=== PATIENT | female | born 1975 | race Caucasian/White ===

== ENCOUNTER → 2017-08-05 | Outpatient (CLI) | payer BC, OTHER ==
[~2017-08-05] MED LIST: MULT-506 PO
== END | disposition home or self-care (01) ==
LOC: C.LABSPEC 10:32
PROVIDERS: ATTEND Internal Medicine
DX: R39.9 Unspecified symptoms and signs involving the genitourinary system (principal)

== ENCOUNTER 2021-12-02 11:39 | Inpatient (IN) ==
--- NOTE | 2021-12-02 12:34 | Emergency Department Note ---
Impression & Plan Acute hyponatremia, Bilateral edema of lower extremity, Cachexia, Elevated LFTs, Hypomagnesemia ED Provider Note INFORMANT: Patient ED PROVIDER(S): Kenyon Moss MD CHIEF COMPLAINT: Lower extremity edema PLAN: Disposition: Admitted Condition: Good Outpatient prescription management: none Referral: None MEDICAL DECISION MAKING: Patient presents because of lower extremity edema. She had cachexia on physical examination. She had significant lower extremity edema. Bilateral ultrasound imaging did not reveal any evidence of DVT. Patient has a leukopenia and anemia, mild elevation of TSH, elevated LFTs, low magnesium, and was hyponatremic. She had IV magnesium given. I discussed further management in the hospital to further elucidate the causes of her lab abnormalities and lower extremity edema. Patient was in agreement. [facility] Patient was evaluated in the ER and admitted for further management. Triage Nursing notes reviewed and agree them. Vital Signs: reviewed and remarkable for no significant abnormalities Differential diagnosis: Hepatic dysfunction, DVT, musculoskeletal, infection, joint effusion, trauma, lymphedema, idiopathic, CHF, as well as other pathologies. Diagnostics interpreted by me: ECG: Twelve-lead ECG was normal sinus rhythm at 64 bpm. Right axis deviation. There is a septal Q wave present. Low voltage QRS. Cardiac Monitoring:Cardiac monitoring ordered by me: The patient was placed on continuous cardiac monitoring and observed. It revealed a normal sinus rhythm at 64 beats per minute without ectopy or evidence of dysrhythmia. Imaging studies: Chest x-ray negative Ultrasound imaging of the lower extremities negative for DVT. HPI: The patient is a 46 year old female who presents to the Emergency Room with complaints of lower extremity edema. This started about a year ago and is much worse over the recent weeks. She was seen by her primary physician and was directed to the emergency department yesterday however the patient could not miss work. They noted her blood pressure was low. Patient also notes weight loss. The patient also notes the following associated symptoms, weakness, weeping of her her legs. The patient has found no relieving factors. Current pain is rated as 0/10. Pt denies LOC, headache, fevers, chills, diaphoresis, visual changes, neck pain, chest pain, breathing difficulties, nausea, vomiting, abdominal pain, back pain, melena, hematochezia, urinary symptoms, numbness, lymphadenopathy, rash, or other complaints. ROS: See above HPI for pertinent positives & negatives. A total of 10 systems reviewed and were otherwise negative. PAST MEDICAL HISTORY:See Below , patient denies PAST SURGICAL HISTORY:See Below, FAMILY HISTORY:See Below SOCIAL HISTORY:See Below, employed as a business banker HOME MEDICATIONS:See Below ALLERGIES:See Below VITALS:See Below PHYSICAL EXAMINATION: GENERAL: Awake, alert, cachectic-appearing, in no distress HENT: Normocephalic, atraumatic. Oropharynx unremarkable. EYES: Normal conjunctiva. Sclera non-icteric. NECK: Inspection normal. Non-tender. Supple. No nuchal rigidity. FROM. No masses. RESPIRATORY: Clear to auscultation. No wheezes. No rales. Normal respiratory effort. CARDIAC: Normal rate. Normal rhythm. No murmurs. No rubs. Extremities warm and well perfused. Pulses equal. No JVD. GI: Soft, non-distended. No tenderness to palpation. No rebound or guarding. No masses. RECTAL: Deferred. MUSCULOSKELETAL: Generalized muscular atrophy. Atraumatic. Chest examination reveals no tenderness. The back is symmetrical on inspection without obvious abnormality. There is no CVA tenderness to palpation. No joint edema. LOWER EXTREMITIES: Calves are equal size bilaterally and non-tender. 4+ edema. Mild bruising discoloration of the right patellar area and some ulceration in weeping noted of the posterior inferior right lower extremity. Discoloration. NEURO: Normal sensorium. No sensory or motor deficits noted. SKIN: No rash or jaundice noted. Kenyon Moss MD Past Med/Surg History Social History Smoking Status: Never smoker Feels Safe at Home: Yes Allergies Allergies Allergy/AdvReac Type Severity Reaction Status Date / Time latex Allergy Rash Verified 12/02/21 13:29 Home Meds Home Medications Medication Instructions Recorded Confirmed levothyroxine 25 mcg tablet 25 mcg PO DAILY 12/02/21 12/02/21 multivitamin 1 tab PO DAILY 12/02/21 12/02/21 mupirocin 2 % topical ointment 1 applic TOPICAL TID PRN 12/02/21 12/02/21 Results & Data (ED) Vital Signs Vital Signs - 24 hr 12/02/21 11:41 12/02/21 11:47 12/02/21 12:20 Temperature 36.0 C L Temperature Source Temporal Artery Scan Pulse Rate 67 66 Pulse Rate [Left] Pulse Rhythm [Left] Pulse Strength [Left] Respiratory Rate 15 18 Respiratory Effort / Characteristics Non-Labored Spontaneous Respiratory Depth Normal Respiratory Pattern Blood Pressure 95/62 L Blood Pressure [Right Arm] Blood Pressure Mean 73 Blood Pressure Mean [Right Arm] Blood Pressure Position Sitting Blood Pressure Position [Right Arm] Pulse Oximetry 100 98 98 Oxygen Delivery Method Room Air Room Air Room Air Sepsis Recent Fever Within 48 Hours No Sepsis New/Unexplained Change in Mental Status No Sepsis Action Taken by Nursing No Action Required 12/02/21 12:30 12/02/21 12:45 12/02/21 13:30 Temperature Temperature Source Pulse Rate 71 100 H 73 Pulse Rate [Left] Pulse Rhythm [Left] Pulse Strength [Left] Respiratory Rate 21 24 15 Respiratory Effort / Characteristics Respiratory Depth Respiratory Pattern Blood Pressure Blood Pressure [Right Arm] Blood Pressure Mean Blood Pressure Mean [Right Arm] Blood Pressure Position Blood Pressure Position [Right Arm] Pulse Oximetry 99 97 98 Oxygen Delivery Method Room Air Room Air Room Air Sepsis Recent Fever Within 48 Hours Sepsis New/Unexplained Change in Mental Status Sepsis Action Taken by Nursing 12/02/21 14:21 Temperature Temperature Source Pulse Rate Pulse Rate [Left] 64 Pulse Rhythm [Left] Regular Pulse Strength [Left] Normal Respiratory Rate 18 Respiratory Effort / Characteristics Non-Labored Respiratory Depth Normal Respiratory Pattern Regular Blood Pressure Blood Pressure [Right Arm] 103/66 Blood Pressure Mean Blood Pressure Mean [Right Arm] 78 Blood Pressure Position Blood Pressure Position [Right Arm] Lying Pulse Oximetry 98 Oxygen Delivery Method Room Air Sepsis Recent Fever Within 48 Hours Sepsis New/Unexplained Change in Mental Status Sepsis Action Taken by Nursing Laboratory Data Result diagrams: 12/02/21 12:19 12/02/21 12:19 Lab Results 12/02/21 12/02/21 12/02/21 Range/Units 12:19 12:19 12:19 WBC 2.91 L (4.8-10.8) K/uL RBC 2.96 L (4.2-5.4) M/uL Hgb 10.9 L (12.0-16.0) g/dL Hct 29.5 L (37-47) % MCV 99.7 (80-100) fL MCH 36.8 H (25-34) pg MCHC 36.9 H (32-36) g/dL RDW Std Deviation 44.9 (36.4-46.3) fL RDW Coeff of Sandy 12.4 (11.5-14.5) % Plt Count 161 (130-400) K/uL MPV 9.7 (7.4-10.4) fL Immature Gran % (Auto) 0.0 % Neut % (Auto) 84.6 % Lymph % (Auto) 8.2 % Verm[place] % (Auto) 7.2 % Eos % (Auto) 0.0 % Baso % (Auto) 0.0 % Neut # (Auto) 2.46 (1.4-6.5) K/uL Lymph # (Auto) 0.24 L (1.2-3.4) K/uL [place] # (Auto) 0.21 (0.11-0.59) K/uL Eos # (Auto) 0.00 (0-0.5) K/uL Baso # (Auto) 0.00 (0-0.2) K/uL Immature Gran # (Auto) 0.00 (0.00-0.02) K/uL PT 11.2 (9.0-12.0) Seconds INR 1.1 (0.9-1.1) Sodium 121 L (136-145) mmol/L Potassium 4.3 (3.5-5.1) mmol/L Chloride 93 L (98-107) mmol/L Carbon Dioxide 25 (21-32) mmol/L Anion Gap 3 (3-11) BUN 17 (6-23) mg/dl Creatinine 0.29 L (0.6-1.2) mg/dl Est Cr Clr Drug Dosing 132.9 ml/min Est GFR ( Amer) > 150.0 ml/min Est GFR (Non-Af Amer) 140.8 ml/min BUN/Creatinine Ratio 58.6 H (10-20) Glucose 75 (70-99(Fasting)) mg/dl Calcium 8.3 L (8.5-10.1) mg/dl Magnesium 1.5 L (1.7-2.4) mg/dl Total Bilirubin 0.4 (0.2-1.0) mg/dl AST 101 H (13-39) U/L ALT 114 H (7-52) U/L Alkaline Phosphatase 120 H (34-104) U/L Troponin I High Sens 7.7 (0-14) pg/ml B-Natriuretic Peptide (0-100) pg/ml Total Protein 5.0 L (6.0-8.3) gm/dl Albumin 3.0 L (3.4-5.0) gm/dl Globulin 2.0 L (2.5-4.0) gm/dl Albumin/Globulin Ratio 1.5 (0.9-2) TSH (0.300-4.500) uIu/ml Free T4 (0.61-1.60) ng/dl HCG, Qual (Negative) Urine Color Urine Appearance (Clear) Urine pH (4.5-7.5) Ur Specific [place] (1.000-1.030) Urine Protein (Negative) Urine Glucose (UA) (Negative) Urine Ketones (Negative) Urine Blood (Negative) Urine Nitrite (Negative) Urine Bilirubin (Negative) Urine Urobilinogen (Negative) Ur Leukocyte Esterase (Negative) 12/02/21 12/02/21 12/02/21 Range/Units 12:19 12:19 12:19 WBC (4.8-10.8) K/uL RBC (4.2-5.4) M/uL Hgb (12.0-16.0) g/dL Hct (37-47) % MCV (80-100) fL MCH (25-34) pg MCHC (32-36) g/dL RDW Std Deviation (36.4-46.3) fL RDW Coeff of Sandy (11.5-14.5) % Plt Count (130-400) K/uL MPV (7.4-10.4) fL Immature Gran % (Auto) % Neut % (Auto) % Lymph % (Auto) % [place] % (Auto) % Eos % (Auto) % Baso % (Auto) % Neut # (Auto) (1.4-6.5) K/uL Lymph # (Auto) (1.2-3.4) K/uL [place] # (Auto) (0.11-0.59) K/uL Eos # (Auto) (0-0.5) K/uL Baso # (Auto) (0-0.2) K/uL Immature Gran # (Auto) (0.00-0.02) K/uL PT (9.0-12.0) Seconds INR (0.9-1.1) Sodium (136-145) mmol/L Potassium (3.5-5.1) mmol/L Chloride (98-107) mmol/L Carbon Dioxide (21-32) mmol/L Anion Gap (3-11) BUN (6-23) mg/dl Creatinine (0.6-1.2) mg/dl Est Cr Clr Drug Dosing ml/min Est GFR ( Amer) ml/min Est GFR (Non-Af Amer) ml/min BUN/Creatinine Ratio (10-20) Glucose (70-99(Fasting)) mg/dl Calcium (8.5-10.1) mg/dl Magnesium (1.7-2.4) mg/dl Total Bilirubin (0.2-1.0) mg/dl AST (13-39) U/L ALT (7-52) U/L Alkaline Phosphatase (34-104) U/L Troponin I High Sens (0-14) pg/ml B-Natriuretic Peptide 96 (0-100) pg/ml Total Protein (6.0-8.3) gm/dl Albumin (3.4-5.0) gm/dl Globulin (2.5-4.0) gm/dl Albumin/Globulin Ratio (0.9-2) TSH 7.607 H (0.300-4.500) uIu/ml Free T4 1.41 (0.61-1.60) ng/dl HCG, Qual Negative (Negative) Urine Color Urine Appearance (Clear) Urine pH (4.5-7.5) Ur Specific [place] (1.000-1.030) Urine Protein (Negative) Urine Glucose (UA) (Negative) Urine Ketones (Negative) Urine Blood (Negative) Urine Nitrite (Negative) Urine Bilirubin (Negative) Urine Urobilinogen (Negative) Ur Leukocyte Esterase (Negative) 12/02/21 Range/Units Unknown WBC (4.8-10.8) K/uL RBC (4.2-5.4) M/uL Hgb (12.0-16.0) g/dL Hct (37-47) % MCV (80-100) fL MCH (25-34) pg MCHC (32-36) g/dL RDW Std Deviation (36.4-46.3) fL RDW Coeff of Sandy (11.5-14.5) % Plt Count (130-400) K/uL MPV (7.4-10.4) fL Immature Gran % (Auto) % Neut % (Auto) % Lymph % (Auto) % [place] % (Auto) % Eos % (Auto) % Baso % (Auto) % Neut # (Auto) (1.4-6.5) K/uL Lymph # (Auto) (1.2-3.4) K/uL [place] # (Auto) (0.11-0.59) K/uL Eos # (Auto) (0-0.5) K/uL Baso # (Auto) (0-0.2) K/uL Immature Gran # (Auto) (0.00-0.02) K/uL PT (9.0-12.0) Seconds INR (0.9-1.1) Sodium (136-145) mmol/L Potassium (3.5-5.1) mmol/L Chloride (98-107) mmol/L Carbon Dioxide (21-32) mmol/L Anion Gap (3-11) BUN (6-23) mg/dl Creatinine (0.6-1.2) mg/dl Est Cr Clr Drug Dosing ml/min Est GFR ( Amer) ml/min Est GFR (Non-Af Amer) ml/min BUN/Creatinine Ratio (10-20) Glucose (70-99(Fasting)) mg/dl Calcium (8.5-10.1) mg/dl Magnesium (1.7-2.4) mg/dl Total Bilirubin (0.2-1.0) mg/dl AST (13-39) U/L ALT (7-52) U/L Alkaline Phosphatase (34-104) U/L Troponin I High Sens (0-14) pg/ml B-Natriuretic Peptide (0-100) pg/ml Total Protein (6.0-8.3) gm/dl Albumin (3.4-5.0) gm/dl Globulin (2.5-4.0) gm/dl Albumin/Globulin Ratio (0.9-2) TSH (0.300-4.500) uIu/ml Free T4 (0.61-1.60) ng/dl HCG, Qual (Negative) Urine Color Yellow Urine Appearance Clear (Clear) Urine pH 7.5 (4.5-7.5) Ur Specific [place] 1.008 (1.000-1.030) Urine Protein Negative (Negative) Urine Glucose (UA) Negative (Negative) Urine Ketones Negative (Negative) Urine Blood Negative (Negative) Urine Nitrite Negative (Negative) Urine Bilirubin Negative (Negative) Urine Urobilinogen Negative (Negative) Ur Leukocyte Esterase Negative (Negative) Administered Medications Discontinued Medications Magnesium Sulfate/Dextrose (Magnesium Sulfate / D5w) 1 gm in 100 mls @ 100 mls/hr IV NOW STA Stop: 12/02/21 16:45 Last Infusion: 12/02/21 17:01 Dose: 0 mls/hr Documented by: [id number] Admin: 12/02/21 15:57 Dose: 100 mls/hr Documented by: [id number] Imaging Data Radiologist's Impression: Chest X-Ray 12/02/21 11:47 SINGLE VIEW CHEST CLINICAL HISTORY: Generalized weakness. FINDINGS: An AP, portable, upright chest radiograph is correlated with chest CT dated 09/22/2021. The cardiomediastinal silhouette is unremarkable. The lungs appear hyperinflated. The lungs and pleural spaces are clear. No pneumothorax is seen. The bony thorax is grossly intact. IMPRESSION: No active disease in the chest. ACT 112: Negative or not required by law. Electronically signed by: Ilia Boss M.D. 12/02/2021 12:39 PM Venous Doppler Study 12/02/21 12:34 BILATERAL LOWER EXTREMITY VENOUS DOPPLER HISTORY: Red and swollen legs. Bilateral lower extremity edema COMPARISON STUDY: None. FINDINGS: There is normal compressibility, flow, and augmentation within the bilateral lower extremity deep venous systems. IMPRESSION: No DVT within the right or left lower extremity. ACT 112: Negative or not required by law. Electronically signed by: Navdeep Flynn M.D. 12/02/2021 2:18 PM Discharge Plan Visit Data Chief Complaint: Swelling/Edema to Extremity Stated Complaint: BILATERAL LEG SWELLING/WEIGHT LOSS/LOW BLOOD PRES ED Provider: Kenyon Moss Discharge Problem: Acute hyponatremia, Bilateral edema of lower extremity, Cachexia, Elevated LFTs, Hypomagnesemia Forms Stand Alone Forms: [facility] [employer] Prescriptions Prescriptions: No Action multivitamin Tablet 1 tab PO DAILY RF: 0 levothyroxine 25 mcg tablet 25 mcg PO DAILY RF: 0 mupirocin 2 % ointment 1 applic TOPICAL TID PRN (Reason: flare up) RF: 0 Referrals Referrals: PCP,NO [Physician] -
--- NOTE | 2021-12-02 12:40 | XRay Report ---
SINGLE VIEW CHEST CLINICAL HISTORY: Generalized weakness. FINDINGS: An AP, portable, upright chest radiograph is correlated with chest CT dated 09/22/2021. The cardiomediastinal silhouette is unremarkable. The lungs appear hyperinflated. The lungs and pleural s paces are clear. No pneumothorax is seen. The bony thorax is grossly intact. IMPRESSION: No active disease in the chest. ACT 112: Negative or not required by law. Electronically signed by: Ilia Boss M.D. 12/02/2021 12:39 PM
[2021-12-02 12:54] LABS: Hematocrit (blood only) 29.5 % (37-47); Hemoglobin 10.9 g/dL (12.0-16.0); Lymphocytes # (auto) 0.24 K/uL (1.2-3.4); Lymphocytes % (auto) 8.2 %; Mean Corpuscular Hemoglobin 36.8 pg (25-34); Mean Corpuscular Hgb Conc 36.9 g/dL (32-36); Mean Corpuscular Volume 99.7 fL (80-100); Mean Platelet Volume 9.7 fL (7.4-10.4); Monocytes # (auto) 0.21 K/uL (0.11-0.59); Monocytes % (auto) 7.2 %; Neutrophils # (auto) 2.46 K/uL (1.4-6.5); Neutrophils % (auto) 84.6 %; Platelet Count 161 K/uL (130-400); RDW Coefficient of Variation 12.4 % (11.5-14.5); RDW Standard Deviation 44.9 fL (36.4-46.3); Red Blood Count 2.96 M/uL (4.2-5.4); White Blood Count 2.91 K/uL (4.8-10.8)
[2021-12-02 13:01] LABS: INR 1.1 (0.9-1.1); Prothrombin Time 11.2 Seconds (9.0-12.0)
[2021-12-02 13:17] LABS: Pregnancy Test, Serum Negative (Negative)
[2021-12-02 13:21] LABS: Troponin I High Sensitivity 7.7 pg/ml (0-14)
[2021-12-02 13:27] LABS: Alanine Aminotransferase 114 U/L (7-52); Albumin Globulin Ratio 1.5 (0.9-2); Alkaline Phosphatase 120 U/L (34-104); Anion Gap 3 (3-11); Aspartate Aminotransferase 101 U/L (13-39); BUN Creatinine Ratio 58.6 (10-20); Bilirubin,Total 0.4 mg/dl (0.2-1.0); Blood Urea Nitrogen 17 mg/dl (6-23); Calcium 8.3 mg/dl (8.5-10.1); Carbon Dioxide 25 mmol/L (21-32); Chloride 93 mmol/L (98-107); Creatinine Clr Calc Pharmacy 132.9 ml/min; Est GFR (African American) > 150.0 ml/min; Est GFR (Non-African American) 140.8 ml/min; Glucose 75 mg/dl (70-99(Fasting)); Magnesium 1.5 mg/dl (1.7-2.4); Potassium 4.3 mmol/L (3.5-5.1); Sodium 121 mmol/L (136-145)
[2021-12-02 13:29] LABS: Thyroid Stimulating Hormone 7.607 uIu/ml (0.300-4.500)
[2021-12-02 14:04] LABS: T4 Free Thyroxine 1.41 ng/dl (0.61-1.60)
--- NOTE | 2021-12-02 14:19 | Ultrasound Report ---
BILATERAL LOWER EXTREMITY VENOUS DOPPLER HISTORY: Red and swollen legs. Bilateral lower extremity edema COMPARISON STUDY: None. FINDINGS: There is normal compressibility, flow, and augmentation within the bilateral lower extremit y deep venous systems. IMPRESSION: No DVT within the right or left lower extremity. ACT 112: Negative or not required by law. Electronically signed by: Navdeep Flynn M.D. 12/02/2021 2:18 PM
[2021-12-02] MEDS ORDERED: MAGNESIUM SULFATE / D5W 1 GM/100 ML BAG IV STA (15:46)
[2021-12-02 15:58] LABS: Appearance Urine Clear (Clear); Bilirubin Urine Negative (Negative); Blood Urine Negative (Negative); Color Urine Yellow; Glucose Urine UA Negative (Negative); Ketones Urine Negative (Negative); Leukocyte Esterase Urine Negative (Negative); Nitrite Urine Negative (Negative); Protein Urine Negative (Negative); Specific Gravity Urine 1.008 (1.000-1.030); Urobilinogen Urine Negative (Negative); pH Urine 7.5 (4.5-7.5)
--- NOTE | 2021-12-02 17:09 | History & Physical Report ---
Date of Service December 02, 2021 Assessment & Plan (1) Bilateral edema of lower extremity: Plan: Present on admission with worsening B/L edema and mild erythema Doppler of B/L LE showed no DVT Lasix 40mg x1 IV given Will start on doxycycline for possible cellulitis Will consult wound care nurse for the ulcer Continue monitor closely Hyponatremia Possible related to poor oral intake/vegetarian diet and diarrhea Na on admission 121 lasix 40mg IV given for the edema Will do fluid restriction with 1.8L daily Check serum and urine osmolarity, urine sodium Will consult nephrology Hypothyroidism TSH 7.6 Will increase Levothyroxine to 37.5 mg daily Check TSH in 4 to 6 weeks Transaminitis Right hepatic lesion AST 101 and ALT 114 on admission MRI on 415 showed 2 well circumscribed T2 hyperintense lobulated lesion within the right hepatic lobe consistent with large cavernous hemangiomas Will need follow-up of the hepatic lesion Continue monitor liver enzymes Hypomagnesemia Magnesium on admission 1.5 Mag replaced Continue monitor Anemia Hemoglobin 10.9 Denies any dark stool or bleeding Continue monitor CBC Malnutrition BMI 13.2 Encourage protein intake Chronic hypotension BP has been low (80's) in the last few encounters with PCP that is baseline Continue monitor DVT prophylaxis on heparin CODE STATUS full code History of Present Illness Chief Complaint: Bilateral lower extremity edema Primary Care Provider: Michaela Lyons MD 46 years old female with past medical history of hypothyroidism, gluten intolerance, cachexia presented to the ER with bilateral lower extremity edema. Patient states she has been having lower extremity edema for about a year but lately the edema seems to get worse. She saw her PCP yesterday that advised her to go to the hospital for the lower extremity edema because the there were ulcers in both legs with redness that were seeping fluid. Patient said that she has been very weak and tired lately. She said that her leg are heavy that she has to lift them to get in the car or on the bed. she said that she has not been riding her bike because she cannot place her legs over bike. patient is a vegetarian and she does not eat carb. She has not been eating adequate food due to abd pain with eating and bloating. She lost about 10 pounds in the last few months. Her weight in the last few visits are 35.2 kg on 12/01/21, 37.1 kg on 05/17/2021 and 37.6 kg on 04/08/2021. Reviewed her outpatient chart showed her blood pressure has been running low for the last few visits with BP 76/44 on 12/01/21, 80/60 on 10/30/21 and 82/60 on09/28/21. She said she had a few episodes of overflow diarrhea after taking Colace and MiraLAX for constipation. Denies any chest pain, palpitation, dizziness, fever and chills. Allergies Allergy/AdvReac Type Severity Reaction Status Date / Time latex Allergy Rash Verified 12/02/21 13:29 Home Medications Medication Instructions Recorded Confirmed Type levothyroxine 25 mcg tablet 25 mcg PO DAILY 12/02/21 12/02/21 History multivitamin 1 tab PO DAILY 12/02/21 12/02/21 History mupirocin 2 % topical ointment 1 applic TOPICAL TID PRN 12/02/21 12/02/21 Histor y Past Med/Surg History Social History Smoking Status: Never smoker Hx Alcohol Use: No Hx Substance Use: No Preferred Language: Mohawk Communication Ability: Effective Tenderizer Tender Required: No Beliefs That Will Affect Care: None Current Living Situation: Family Current Living Situation Comment: primary caregiver for elderly mother Feels Safe at Home: Yes Safety Concerns: Feels Safe At This Time Assistive Devices: Glasses Review of Systems Review of Systems: All systems reviewed & are unremarkable except as noted in HPI & below Physical Exam Physical Exam: General- No acute distress, +cachectic Head- atraumatic Eyes- PERRL, EOMI, ENT- oropharynx clear Neck- supple, no JVD Lungs- clear to auscultation Heart- regular rhythm; no murmur Abdomen- normal bowel sounds, soft, nontender Extremities- +B/L lower extremities +3 edema, with some erythema around the superficial ulcer, +tenderness Neuro- alert, oriented x 3; PERRL, EOMI; no facial palsy; no dysarthria Skin- warm & dry, pale Results & Data Results & Data ([facility]) Vital Signs (Past 12 Hours) Vital Signs Temp Pulse Pulse Resp BP BP Pulse Ox 12/02/21 14:21 64 18 103/66 98 12/02/21 13:30 73 15 98 12/02/21 12:45 100 H 24 97 12/02/21 12:30 71 21 99 12/02/21 12:20 66 18 98 12/02/21 11:47 98 12/02/21 11:41 36.0 C L 67 15 95/62 L 100 Diagnostic Findings BILATERAL LOWER EXTREMITY VENOUS DOPPLER HISTORY: Red and swollen legs. Bilateral lower extremity edema COMPARISON STUDY: None. FINDINGS: There is normal compressibility, flow, and augmentation within the bilateral lower extremity deep venous systems. IMPRESSION: No DVT within the right or left lower extremity. ACT 112: Negative or not required by law. Electronically signed by: Navdeep Flynn M.D. 12/02/2021 2:18 PM Dictated:12/02/21 1418 Transcribed: 12/02/21 141 SINGLE VIEW CHEST CLINICAL HISTORY: Generalized weakness. FINDINGS: An AP, portable, upright chest radiograph is correlated with chest CT dated 09/22/2021. The cardiomediastinal silhouette is unremarkable. The lungs appear hyperinflated. The lungs and pleural spaces are clear. No pneumothorax is seen. The bony thorax is grossly intact. IMPRESSION: No active disease in the chest. ACT 112: Negative or not required by law. Electronically signed by: Ilia Boss M.D. 12/02/2021 12:39 PM Dictated:12/02/21 1238 Transcribed: 12/02/21 1238
[2021-12-02] MEDS ORDERED: FUROSEMIDE 40 MG/4 ML VIAL IV ONE (19:41)
[2021-12-02] MEDS: DOXYCYCLINE HYCLATE 100 MG CAP PO SCH (22:13)
[2021-12-02 23:35] LABS: Anion Gap 5 (3-11); BUN Creatinine Ratio 51.7 (10-20); Blood Urea Nitrogen 15 mg/dl (6-23); Calcium 8.1 mg/dl (8.5-10.1); Carbon Dioxide 30 mmol/L (21-32); Chloride 94 mmol/L (98-107); Creatinine Clr Calc Pharmacy 127.8 ml/min; Est GFR (African American) > 150.0 ml/min; Est GFR (Non-African American) 140.8 ml/min; Glucose 97 mg/dl (70-99(Fasting)); Potassium 3.3 mmol/L (3.5-5.1); Sodium 129 mmol/L (136-145)
[2021-12-03] MEDS ORDERED: traMADol HCL 50 MG TABLET PO STA (01:04)
[2021-12-03] MEDS ORDERED: POTASSIUM CHLORIDE CRTAB 20 MEQ TABCR PO STA (01:45)
[2021-12-03] MEDS: HEPARIN SOD 5,000 UNIT/0.5 ML VIAL SQ SCH ×3 (05:47→21:20)
--- NOTE | 2021-12-03 05:58 | Electrocardiogram Report ---
Test Reason : Blood Pressure : / mmHG Vent. Rate : 060 BPM Atrial Rate : 060 BPM P-R Int : 186 ms QRS Dur : 062 ms QT Int : 384 ms P-R-T Axes : 081 090 079 degrees QTc Int : 387 ms Sinus tachycardia Premature atrial complexes Rightward axis Abnormal ECG No previous ECGs available Confirmed by Saurav Dominguez ([id number]) on 12/03/2021 5:57:41 AM Referred By: Confirmed By:Saurav Dominguez
[2021-12-03] MEDS: LEVOTHYROXINE SODIUM 25 MCG TABLET PO SCH (06:33)
[2021-12-03 08:09] LABS: Hematocrit (blood only) 28.1 % (37-47); Hemoglobin 9.9 g/dL (12.0-16.0); Mean Corpuscular Hemoglobin 35.7 pg (25-34); Mean Corpuscular Hgb Conc 35.2 g/dL (32-36); Mean Corpuscular Volume 101.4 fL (80-100); Mean Platelet Volume 9.8 fL (7.4-10.4); Platelet Count 150 K/uL (130-400); RDW Coefficient of Variation 12.3 % (11.5-14.5); RDW Standard Deviation 45.7 fL (36.4-46.3); Red Blood Count 2.77 M/uL (4.2-5.4); White Blood Count 1.86 K/uL (4.8-10.8)
[2021-12-03] MEDS: MULTIVITAMIN TAB PO SCH (08:21)
[2021-12-03] MEDS: DOXYCYCLINE HYCLATE 100 MG CAP PO SCH ×2 (08:21→21:19)
[2021-12-03 08:26] LABS: Alanine Aminotransferase 92 U/L (7-52); Albumin Globulin Ratio 1.6 (0.9-2); Albumin Level 2.8 gm/dl (3.4-5.0); Alkaline Phosphatase 102 U/L (34-104); Anion Gap 2 (3-11); Aspartate Aminotransferase 72 U/L (13-39); BUN Creatinine Ratio 57.1 (10-20); Bilirubin,Total 0.5 mg/dl (0.2-1.0); Blood Urea Nitrogen 16 mg/dl (6-23); Calcium 8.1 mg/dl (8.5-10.1); Carbon Dioxide 28 mmol/L (21-32); Chloride 96 mmol/L (98-107); Creatinine Clr Calc Pharmacy 132.4 ml/min; Est GFR (African American) > 150.0 ml/min; Est GFR (Non-African American) 142.4 ml/min; Globulin 1.8 gm/dl (2.5-4.0); Glucose 69 mg/dl (70-99(Fasting)); Magnesium 1.5 mg/dl (1.7-2.4); Potassium 4.2 mmol/L (3.5-5.1); Sodium 126 mmol/L (136-145); Total Protein 4.6 gm/dl (6.0-8.3)
--- NOTE | 2021-12-03 08:56 | Nephrology Consultation ---
Date of Consultation December 03, 2021 Assessment & Plan (1) Hyponatremia: Hyponatremia Multifactorial- 2/ poor solute intake,hypovolemia. She is intravascularly dry but peripherally expanded as she is hypotensive with low albumin with chronic diarrhea. Her oral intake has not been good. UOsm- 256. Heidi- 53, pOsm-266 Na was - 121 on arrival yesterday,( 12.19pm) and she received 40 mg IV lasix as per H&p- na -->129(22.42PM 12/02)---> 126 (6.35 --12/03). Rate of correction on target-- 129-130 until midday today --139--141 until midday tmrw. start on albumin 25 g TID for 48 hr -furosemide- 10 mg BID iv -12 hrly sodium for next 24 hr, which can then be made every 24 hr -Nutritional consult for increase protein / salt diet. Keep K > 4.0 Replace potassium (2) Bilateral edema of lower extremity: - nutritional - Needs nutritional consult for increasing the protein/ calorie/ salt intake - Low dose furosemide 10 mg BID iv, if needed. (3) Hypomagnesemia: - 2/ poor intake - Replace History of Present Illness Reason for Consultation: Hyponatremai Attending Physician: Tyrone Suh MD History of Present Illness 46 years old female,admitted with bilateral lower extremity edema. Chronic bilateral pedal edema which has been going worse over the last few days, with cellulitis and seeping ulcers bilaterally. Other past medical history of hypothyroidism and gluten intolerance. She complained of poor oral intake over the last few. She also complained of chronic diarrhea. Blood pressure has been chronically low .In the ER she was found to be hypotensive with systolics in the 90s. Labs were significant for sodium of 129, BUN/CR- 16/2.8, hypomagnesemic ,hypocalcemic and leukopenic. She received 1 dose of 40 mg IV Lasix. On review she was a cachectic lady not in any distress, looked intravascularly dry but peripherally expanded. No shortness of breath, bilateral pedal edema with with cellulitic looking leg. Allergies Allergy/AdvReac Type Severity Reaction Status Date / Time latex Allergy Rash Verified 12/02/21 13:29 Home Medications Medication Instructions Recorded Confirmed Type levothyroxine 25 mcg tablet 25 mcg PO DAILY 12/02/21 12/02/21 History multivitamin 1 tab PO DAILY 12/02/21 12/02/21 History mupirocin 2 % topical ointment 1 applic TOPICAL TID PRN 12/02/21 12/02/21 History Patient History Social History Smoking Status: Never smoker Hx Alcohol Use: No Hx Substance Use: No Preferred Language: Dominican Communication Ability: Effective Economic Manager Required: No Beliefs That Will Affect Care: None Current Living Situation: Family Current Living Situation Comment: primary caregiver for elderly mother Feels Safe at Home: Yes Safety Concerns: Feels Safe At This Time Assistive Devices: Glasses Review of Systems Review of Systems: Alert oriented Cachectic Bilateral pedal edema, with cellulitis. Physical Exam Physical Exam: General- No acute distress, +cachectic Head- atraumatic Eyes- PERRL, EOMI, ENT- oropharynx clear Neck- supple, no JVD Lungs- clear to auscultation Heart- regular rhythm; no murmur Abdomen- normal bowel sounds, soft, nontender Extremities- +B/L lower extremities +3 edema, with some erythema around the superficial ulcer, +tenderness Neuro- alert, oriented x 3; PERRL, EOMI; no facial palsy; no dysarthria Skin- warm & dry, pale Results & Data ([facility]) Vital Signs (Past 12 Hours) Vital Signs Temp Pulse Pulse Resp BP Pulse Ox 12/03/21 06:35 36.0 C L 66 18 97/60 L 98 12/03/21 03:10 36.3 C L 57 L 18 83/60 L 100 12/03/21 00:19 77 12/02/21 22:43 36.0 C L 78 18 83/60 L 100 12/02/21 21:05 35.7 C L 75 16 88/68 L 100 12/02/21 20:55 100 H Laboratory Results 12/03/21 06:35 12/03/21 06:35
[2021-12-03] MEDS ORDERED: ENOXAPARIN INJ 40 MG/0.4 ML SYR SQ SCH (09:00)
[2021-12-03] MEDS: FUROSEMIDE INJ 20 MG/2 ML VIAL IV SCH ×2 (11:24→21:20)
[2021-12-03] MEDS: ALBUMIN 25% 100 mL 25 GM/100 ML VIAL IV SCH ×2 (11:25→19:02)
--- NOTE | 2021-12-03 15:56 | Ultrasound Report ---
ankle/brachial index ltd CLINICAL HISTORY: Leg swelling and pain. Assess for peripheral arterial disease COMPARISON STUDY: None. FINDINGS: Bilateral ankle brachial indices measure 1.2. IMPRESSION: Normal bilateral ankle brachial indices. ACT 112: Negative or not required by law. Electronically signed by: Navdeep Flynn M.D. 12/03/2021 3:55 PM
--- NOTE | 2021-12-03 16:09 | Hospitalist Progress Note ---
Date of Service December 03, 2021 Assessment & Plan (1) Bilateral edema of lower extremity: Plan: Present on admission with worsening B/L edema and mild erythema Doppler of B/L LE showed no DVT Lasix 40mg x1 IV given Will start on doxycycline for possible cellulitis Will consult wound care nurse for the ulcer Continue monitor closely Bilateral leg wounds Mostly in the calves and also anterior knees and ankles Has been on oral doxycycline Wound care has been consulted-please see the picture for detailed look at the wound (2) Acute hyponatremia: Plan: Possible related to poor oral intake/vegetarian diet and diarrhea Na on admission 121 lasix 40mg IV given for the edema Will do fluid restriction with 1.8L daily Check serum and urine osmolarity, urine sodium -noted Appreciate nephrology input and recommendation Will receive albumin 25 g IV every 8 hourly and Lasix 10 mg IV twice daily We will check PRP every 12 hours Sodium level is around 1 29-1 30 she may be discharged home Hypomagnesemia Likely secondary to poor intake We will replace and monitor (3) Cachexia: Plan: Has severe malnutrition BMI 13.2 Encourage protein intake Nutritional consult has been requested (4) Elevated LFTs: Plan: Right hepatic lesion AST 101 and ALT 114 on admission MRI on 415 showed 2 well circumscribed T2 hyperintense lobulated lesion within the right hepatic lobe consistent with large cavernous hemangiomas Will need follow-up of the hepatic lesion Continue monitor liver enzymes Hypothyroidism TSH 7.6 Will increase Levothyroxine to 37.5 mg daily Check TSH in 4 to 6 weeks Anemia Hemoglobin 10.9 Denies any dark stool or bleeding Continue monitor CBC Chronic hypotension BP has been low (80's) in the last few encounters with PCP that is baseline Continue monitor DVT prophylaxis-subcu heparin Admission and Anticipated Discharge Date Admission Date: December 02, 2021 Subjective 12/03/2021 The patient was seen and examined in medical telemetry unit She has been feeling much better Her leg swelling has improved and denies any fever and no chills The leg wounds are looking better without significant discharge Sodium level remains low Review of Systems Review of Systems: All systems reviewed and are unremarkable except as noted below Integumentary: Bilateral leg wounds Physical Exam Physical Exam: Lying in bed comfortably Constitutional: + ill appearing, + thin, + cachectic, + malnourished and + edematous (In lower extremities) Eyes: PERRL, conjunctivae normal, anicteric sclerae ENMT: external ear and nose normal, oropharynx normal Neck: trachea midline, no thyromegaly Respiratory: no respiratory distress Auscultation: + diminished lung sounds; no crackles Cardiovascular: Rate/Rhythm: regular rate and regular rhythm; not tachycardic Heart Sounds: normal S1 and normal S2; no murmur Extremities: + edema (2+ bilateral leg edema) Musculoskeletal: No acute arthritis in any joint Skin: Bilateral leg wounds involving the calves,ankles and also anterior knees-as in picture Neurologic: Alert, awake and oriented x3, no focal sensory or no motor deficit appreciated Psychiatric: A+Ox3, euthymic affect Results & Data Results & Data ([facility]) Vital Signs (Past 12 Hours) Vital Signs Temp Pulse Pulse Resp BP Pulse Ox 12/03/21 15:02 36.0 C L 78 18 97/69 L 100 12/03/21 11:28 90/59 L 12/03/21 10:48 61 18 79/54 L 94 12/03/21 10:04 60 12/03/21 06:35 36.0 C L 66 18 97/60 L 98 Laboratory Results Short CBC 12/03/21 Range/Units 06:35 WBC 1.86 L (4.8-10.8) K/uL Hgb 9.9 L (12.0-16.0) g/dL Hct 28.1 L (37-47) % Plt Count 150 (130-400) K/uL BMP 12/02/21 12/03/21 22:43 06:35 Sodium 129 L 126 L Potassium 3.3 L D 4.2 D Chloride 94 L 96 L Carbon Dioxide 30 28 BUN 15 16 Creatinine 0.29 L 0.28 L Glucose 97 69 L Calcium 8.1 L 8.1 L Liver Function 12/03/21 Range/Units 06:35 Total Bilirubin 0.5 (0.2-1.0) mg/dl AST 72 H (13-39) U/L ALT 92 H (7-52) U/L Alkaline Phosphatase 102 (34-104) U/L Albumin 2.8 L (3.4-5.0) gm/dl Medications Administered Current Inpatient Medications Doxycycline Hyclate (Doxycycline Hyclate 100 Mg Cap) 100 mg PO BID PATTIE Stop: 12/09/21 20:59 Last Admin: 12/03/21 08:21 Dose: 100 mg Documented by: Furosemide (Furosemide Inj 20 Mg/2 Ml Vial) 10 mg IV BID PATTIE Stop: 01/02/22 10:59 Last Admin: 12/03/21 11:24 Dose: 10 mg Documented by: Heparin Sodium (Porcine) (Heparin Sod 5,000 Unit/0.5 Ml Vial) 5,000 units SQ Q8 PATTIE Stop: 01/02/22 05:59 Last Admin: 12/03/21 05:47 Dose: Not Given Documented by: Albumin Human (Albumin 25% 100 Ml) 25 gm in 100 mls @ 50 mls/hr IV Q8H PATTIE Stop: 12/06/21 10:59 Last Infusion: 12/03/21 13:59 Dose: Infused Documented by: Levothyroxine Sodium (Levothyroxine Sodium 25 Mcg Tablet) 37.5 mcg PO DAILYBB [facility] Stop: 01/02/22 06:29 Last Admin: 12/03/21 06:33 Dose: 37.5 mcg Documented by: Multivitamins (Multivitamin Tab) 1 tab PO DAILY PATTIE Stop: 01/02/22 08:59 Last Admin: 12/03/21 08:21 Dose: 1 tab Documented by:
[2021-12-03] MEDS ORDERED: METOPROLOL TARTRATE 1 MG/ML VIAL IV SCH (18:00)
[2021-12-03 18:19] LABS: Anion Gap 4 (3-11); BUN Creatinine Ratio 67.6 (10-20); Blood Urea Nitrogen 23 mg/dl (6-23); Calcium 8.7 mg/dl (8.5-10.1); Carbon Dioxide 29 mmol/L (21-32); Chloride 95 mmol/L (98-107); Est GFR (African American) > 150.0 ml/min; Est GFR (Non-African American) 133.6 ml/min; Glucose 106 mg/dl (70-99(Fasting)); Potassium 3.9 mmol/L (3.5-5.1); Sodium 128 mmol/L (136-145)
[2021-12-03] MEDS ORDERED: METOPROLOL TARTRATE 25 MG TAB PO SCH (21:00)
[2021-12-04] MEDS: ALBUMIN 25% 100 mL 25 GM/100 ML VIAL IV SCH ×2 (02:08→10:44)
[2021-12-04] MEDS: HEPARIN SOD 5,000 UNIT/0.5 ML VIAL SQ SCH ×2 (05:56→13:27)
[2021-12-04] MEDS: LEVOTHYROXINE SODIUM 25 MCG TABLET PO SCH (05:56)
[2021-12-04 06:15] LABS: Hematocrit (blood only) 22.9 % (37-47); Hemoglobin 8.2 g/dL (12.0-16.0); Lymphocytes # (auto) 0.22 K/uL (1.2-3.4); Lymphocytes % (auto) 15.4 %; Mean Corpuscular Hemoglobin 35.8 pg (25-34); Mean Corpuscular Hgb Conc 35.8 g/dL (32-36); Mean Platelet Volume 8.9 fL (7.4-10.4); Monocytes # (auto) 0.11 K/uL (0.11-0.59); Monocytes % (auto) 7.7 %; Neutrophils % (auto) 76.9 %; Platelet Count 113 K/uL (130-400); RDW Coefficient of Variation 12.7 % (11.5-14.5); RDW Standard Deviation 46.8 fL (36.4-46.3); Red Blood Count 2.29 M/uL (4.2-5.4); White Blood Count 1.43 K/uL (4.8-10.8)
[2021-12-04 06:37] LABS: ALC (manual) 0.21 K/uL (1.2-3.4); Lymphocytes # (manual) 0.21 K/uL (1.2-3.4); Lymphocytes % (manual) 14.8 %; Monocytes # (manual) 0.02 K/uL (0.11-0.59); Monocytes % (manual) 1.2 %
[2021-12-04 08:06] LABS: Alanine Aminotransferase 73 U/L (7-52); Albumin Level 3.5 gm/dl (3.4-5.0); Alkaline Phosphatase 74 U/L (34-104); Anion Gap 4 (3-11); Aspartate Aminotransferase 66 U/L (13-39); BUN Creatinine Ratio 65.4 (10-20); Bilirubin Direct 0.2 mg/dl (0-0.2); Bilirubin,Total 0.7 mg/dl (0.2-1.0); Blood Urea Nitrogen 17 mg/dl (6-23); Calcium 8.5 mg/dl (8.5-10.1); Carbon Dioxide 29 mmol/L (21-32); Chloride 99 mmol/L (98-107); Creatinine Clr Calc Pharmacy 139.1 ml/min; Est GFR (African American) > 150.0 ml/min; Glucose 59 mg/dl (70-99(Fasting)); Potassium 3.6 mmol/L (3.5-5.1); Sodium 132 mmol/L (136-145); Total Protein 4.9 gm/dl (6.0-8.3)
[2021-12-04] MEDS: DOXYCYCLINE HYCLATE 100 MG CAP PO SCH (08:20)
[2021-12-04] MEDS: MULTIVITAMIN TAB PO SCH (08:21)
[2021-12-04] MEDS: FUROSEMIDE INJ 20 MG/2 ML VIAL IV SCH (08:21)
--- NOTE | 2021-12-04 10:11 | Nephrology Progress Note ---
Date of Service December 04, 2021 Assessment & Plan (1) Hyponatremia: Plan: Hyponatremia Multifactorial- 2/ poor solute intake,hypovolemia. She is intravascularly dry but peripherally expanded as she is hypotensive with low albumin with chronic diarrhea. Her oral intake has not been good. UOsm- 256. Heidi- 53, pOsm-266 Sodium has improved on albumin and Lasix combination. Sodium is 132 this morning. Patient is requesting to go home. -Patient can be discharged today on salt tablets 1 g 3 times daily, Lasix 20 mg daily, potassium chloride 20 equivalents daily and fluid restriction of 1.5 L daily. -Patient needs high-protein diet. I have asked her to eat at least 3 eggs every day and include protein on each meal. Patient should have at least 3 meals daily. This will be challenging given her vegetarian lifestyle. Patient will need a repeat BMP mid next week and renal follow-up towards the end of the week. Keep K > 4.0 Replace potassium (2) Bilateral edema of lower extremity: Plan: - nutritional - Needs nutritional consult for increasing the protein/ calorie/ salt intake - Low dose furosemide as above (3) Hypomagnesemia: Plan: - 2/ poor intake - Replace Admission and Anticipated Discharge Date Admission Date: December 02, 2021 Subjective Seen in follow-up for hyponatremia. She feels better today. Patient is a vegetarian with minimal protein intake. She is now agreeable to eating at least 3 eggs every day and tofu. Review of Systems Review of Systems: All other systems were reviewed and negative except as noted in HPI Physical Exam Physical Exam: General exam: Cachectic, appears comfortable, no acute distress HEENT: Pupils are equal and reactive to light Neck: No JVD, neck is supple trachea is midline Respiratory system: Clear breath sounds bilaterally. Gastrointestinal: Abdomen is soft, non distended, non tender, bowel sounds are present CVS: Regular rate and rhythm. No murmurs, rubs or gallops Musculoskeletal: No joint or muscle tenderness Extremities: Non tender, 1+ edema, peripheral pulses are present Neuro: Oriented, no tremors, no focal neurological deficits Skin: No rashes Results & Data ([facility]) Vital Signs (Past 12 Hours) Vital Signs Temp Pulse Pulse Resp BP Pulse Ox 12/04/21 07:35 66 12/04/21 07:24 76 18 93/58 L 98 12/04/21 04:00 34.2 C L 66 18 93/56 L 100 12/03/21 23:33 66 12/03/21 23:00 36.3 C L 73 18 89/60 L 100 Laboratory Results 12/04/21 05:54 12/04/21 12/04/21 05:54 05:54 WBC 1.43 L RBC 2.29 L MCV 100.0 MCH 35.8 H MCHC 35.8 RDW Std Deviation 46.8 H RDW Coeff of Sandy 12.7 Plt Count 113 L MPV 8.9 Albumin 3.5
--- NOTE | 2021-12-04 13:49 | Hospitalist Progress Note ---
Date of Service December 04, 2021 Assessment & Plan (1) Bilateral edema of lower extremity: Plan: Present on admission with worsening B/L edema and mild erythema Doppler of B/L LE showed no DVT Lasix 40mg x1 IV given Will start on doxycycline for possible cellulitis Will consult wound care nurse for the ulcer Continue monitor closely Edema is much improved Bilateral leg wounds Mostly in the calves and also anterior knees and ankles Has been on oral doxycycline Wound care has been consulted-please see the picture for detailed look at the wound Wounds are looking much better She will be discharged home today on oral doxycycline to finish the course for 10 days in total (2) Acute hyponatremia: Plan: Possible related to poor oral intake/vegetarian diet and diarrhea Na on admission 121 lasix 40mg IV given for the edema Will do fluid restriction with 1.8L daily Check serum and urine osmolarity, urine sodium -noted Appreciate nephrology input and recommendation Will receive albumin 25 g IV every 8 hourly and Lasix 10 mg IV twice daily We will check PRP every 12 hours Sodium level is around 1 29-1 30 she may be discharged home Sodium level has been 132 and will follow the recommendation as per pin chaser -Patient can be discharged today on salt tablets 1 g 3 times daily, Lasix 20 mg daily, potassium chloride 20 equivalents daily and fluid restriction of 1.5 L daily. -Patient needs high-protein diet. I have asked her to eat at least 3 eggs every day and include protein on each meal. Patient should have at least 3 meals daily. This will be challenging given her vegetarian lifestyle. Patient will need a repeat BMP mid next week and renal follow-up towards the end of the week. Hypomagnesemia Likely secondary to poor intake We will replace and monitor (3) Cachexia: Plan: Has severe malnutrition BMI 13.2 Encourage protein intake Nutritional consult has been requested (4) Elevated LFTs: Plan: Right hepatic lesion AST 101 and ALT 114 on admission MRI on 415 showed 2 well circumscribed T2 hyperintense lobulated lesion within the right hepatic lobe consistent with large cavernous hemangiomas Will need follow-up of the hepatic lesion Continue monitor liver enzymes-has been improving Hypothyroidism TSH 7.6 Will increase Levothyroxine to 37.5 mg daily Check TSH in 4 to 6 weeks Anemia Hemoglobin 10.9 Denies any dark stool or bleeding Continue monitor CBC Chronic hypotension BP has been low (80's) in the last few encounters with PCP that is baseline Continue monitor DVT prophylaxis-subcu heparin Plan: Will be discharged home today Admission and Anticipated Discharge Date Admission Date: December 02, 2021 Subjective 12/03/2021 The patient was seen and examined in medical telemetry unit She has been feeling much better Her leg swelling has improved and denies any fever and no chills The leg wounds are looking better without significant discharge Sodium level remains low 12/04/2021 The patient was seen and examined in medical telemetry unit She has been stable and denies any significant symptoms Her leg swelling and cellulitis involving the legs are better She wants to go home Review of Systems Review of Systems: All systems reviewed and are unremarkable except as noted below Neurologic: Generally very weak and lethargic Physical Exam Constitutional: + ill appearing, + thin, + cachectic, + malnourished and + edematous (In lower extremities) Eyes: PERRL, conjunctivae normal, anicteric sclerae ENMT: external ear and nose normal, oropharynx normal Neck: trachea midline, no thyromegaly Respiratory: no respiratory distress Auscultation: + diminished lung sounds; no crackles Cardiovascular: Rate/Rhythm: regular rate and regular rhythm; not tachycardic Heart Sounds: normal S1 and normal S2; no murmur Extremities: + edema (2+ bilateral leg edema) Gastrointestinal (Abdomen): Inspection/Auscultation: normal bowel sounds; abdomen not distended Percussion/Palpation: abdomen soft; abdomen nontender Musculoskeletal: No acute arthritis in any joint Neurologic: Alert, awake and oriented x3. Generally weak but no focal sensory or no motor deficit appreciated Psychiatric: A+Ox3, euthymic affect Results & Data Results & Data ([facility]) Vital Signs (Past 12 Hours) Vital Signs Temp Pulse Pulse Resp BP Pulse Ox 12/04/21 07:35 66 12/04/21 07:24 76 18 93/58 L 98 12/04/21 04:00 34.2 C L 66 18 93/56 L 100 Laboratory Results Short CBC 12/04/21 Range/Units 05:54 WBC 1.43 L (4.8-10.8) K/uL Hgb 8.2 L (12.0-16.0) g/dL Hct 22.9 L (37-47) % Plt Count 113 L (130-400) K/uL BMP 12/03/21 12/04/21 17:39 05:54 Sodium 128 L 132 L Potassium 3.9 3.6 Chloride 95 L 99 Carbon Dioxide 29 29 BUN 23 17 Creatinine 0.34 L 0.26 L Glucose 106 H 59 L Calcium 8.7 8.5 Liver Function 12/04/21 Range/Units 05:54 Total Bilirubin 0.7 (0.2-1.0) mg/dl Direct Bilirubin 0.2 (0-0.2) mg/dl AST 66 H (13-39) U/L ALT 73 H (7-52) U/L Alkaline Phosphatase 74 (34-104) U/L Albumin 3.5 (3.4-5.0) gm/dl Medications Administered Current Inpatient Medications Doxycycline Hyclate (Doxycycline Hyclate 100 Mg Cap) 100 mg PO BID PATTIE Stop: 12/09/21 20:59 Last Admin: 12/04/21 08:20 Dose: 100 mg Documented by: Furosemide (Furosemide Inj 20 Mg/2 Ml Vial) 10 mg IV BID PATTIE Stop: 01/02/22 10:59 Last Admin: 12/04/21 08:21 Dose: 10 mg Documented by: Heparin Sodium (Porcine) (Heparin Sod 5,000 Unit/0.5 Ml Vial) 5,000 units SQ Q8 PATTIE Stop: 01/02/22 05:59 Last Admin: 12/04/21 13:27 Dose: Not Given Documented by: Albumin Human (Albumin 25% 100 Ml) 25 gm in 100 mls @ 50 mls/hr IV Q8H PATTIE Stop: 12/06/21 10:59 Last Infusion: 12/04/21 12:49 Dose: Infused Documented by: Levothyroxine Sodium (Levothyroxine Sodium 25 Mcg Tablet) 37.5 mcg PO DAILYBB PATTIE Stop: 01/02/22 06:29 Last Admin: 12/04/21 05:56 Dose: 37.5 mcg Documented by: Multivitamins (Multivitamin Tab) 1 tab PO DAILY PATTIE Stop: 01/02/22 08:59 Last Admin: 12/04/21 08:21 Dose: 1 tab Documented by:
--- NOTE | 2021-12-05 07:55 | Discharge Summary ---
Date of Service December 04, 2021 Admission HPI Per Admitting Provider Chief Complaint: Bilateral lower extremity edema Primary Care Provider: Michaela Lyons MD 46 years old female with past medical history of hypothyroidism, gluten intolerance, cachexia presented to the ER with bilateral lower extremity edema. Patient states she has been having lower extremity edema for about a year but lately the edema seems to get worse. She saw her PCP yesterday that advised her to go to the hospital for the lower extremity edema because the there were ulcers in both legs with redness that were seeping fluid. Patient said that she has been very weak and tired lately. She said that her leg are heavy that she has to lift them to get in the car or on the bed. she said that she has not been riding her bike because she cannot place her legs over bike. patient is a vegetarian and she does not eat carb. She has not been eating adequate food due to abd pain with eating and bloating. She lost about 10 pounds in the last few months. Her weight in the last few visits are 35.2 kg on 12/01/21, 37.1 kg on 05/17/2021 and 37.6 kg on 04/08/2021. Reviewed her outpatient chart showed her blood pressure has been running low for the last few visits with BP 76/44 on 12/01/21, 80/60 on 10/30/21 and 82/60 on09/28/21. She said she had a few episodes of overflow diarrhea after taking Colace and MiraLAX for constipation. Denies any chest pain, palpitation, dizziness, fever and chills. Admission Exam Per Admitting Provider Physical Exam: General- No acute distress, +cachectic Head- atraumatic Eyes- PERRL, EOMI, ENT- oropharynx clear Neck- supple, no JVD Lungs- clear to auscultation Heart- regular rhythm; no murmur Abdomen- normal bowel sounds, soft, nontender Extremities- +B/L lower extremities +3 edema, with some erythema around the superficial ulcer, +tenderness Neuro- alert, oriented x 3; PERRL, EOMI; no facial palsy; no dysarthria Skin- warm & dry, pale Principal Diagnosis Edema of the lower extremities, acute hyponatremia, bilateral leg wounds Discharge Exam Constitutional + ill appearing, + thin, + cachectic, + malnourished and + edematous (In lower extremities) Eyes PERRL, conjunctivae normal, anicteric sclerae ENMT external ear and nose normal, oropharynx normal Neck trachea midline, no thyromegaly Respiratory no respiratory distress Auscultation: + diminished lung sounds; no crackles Cardiovascular Rate/Rhythm: regular rate and regular rhythm; not tachycardic Heart Sounds: normal S1 and normal S2; no murmur Extremities: + edema (2+ bilateral leg edema) Gastrointestinal (Abdomen) Inspection/Auscultation: normal bowel sounds; abdomen not distended Percussion/Palpation: abdomen soft; abdomen nontender Psychiatric A+Ox3, euthymic affect Discharge Data Allergies Allergy/AdvReac Type Severity Reaction Status Date / Time latex Allergy Rash Verified 12/02/21 13:29 Consultations 12/02/21 16:37 ED Decision to Admit Stat 12/02/21 20:52 Consult Nephrology Routine 12/03/21 09:20 Consult Nutrition Routine Ordered Studies 12/02/21 12:34 US venous doppler LE BI Stat 12/03/21 12:36 US ankle/brachial index ltd Routine Hospital Course (1) Bilateral edema of lower extremity: Present on admission with worsening B/L edema and mild erythema Doppler of B/L LE showed no DVT Lasix 40mg x1 IV given Will start on doxycycline for possible cellulitis Will consult wound care nurse for the ulcer Continue monitor closely Edema is much improved Bilateral leg wounds Mostly in the calves and also anterior knees and ankles Has been on oral doxycycline Wound care has been consulted-please see the picture for detailed look at the wound Wounds are looking much better She will be discharged home today on oral doxycycline to finish the course for 10 days in total (2) Acute hyponatremia: Possible related to poor oral intake/vegetarian diet and diarrhea Na on admission 121 lasix 40mg IV given for the edema Will do fluid restriction with 1.8L daily Check serum and urine osmolarity, urine sodium -noted Appreciate nephrology input and recommendation Will receive albumin 25 g IV every 8 hourly and Lasix 10 mg IV twice daily We will check PRP every 12 hours Sodium level is around 1 29-1 30 she may be discharged home Sodium level has been 132 and will follow the recommendation as per business banker -Patient can be discharged today on salt tablets 1 g 3 times daily, Lasix 20 mg daily, potassium chloride 20 equivalents daily and fluid restriction of 1.5 L daily. -Patient needs high-protein diet. I have asked her to eat at least 3 eggs every day and include protein on each meal. Patient should have at least 3 meals daily. This will be challenging given her vegetarian lifestyle. Patient will need a repeat BMP mid next week and renal follow-up towards the end of the week. Hypomagnesemia Likely secondary to poor intake We will replace and monitor (3) Cachexia: Has severe malnutrition BMI 13.2 Encourage protein intake Nutritional consult has been requested (4) Elevated LFTs: Right hepatic lesion AST 101 and ALT 114 on admission MRI on 415 showed 2 well circumscribed T2 hyperintense lobulated lesion within the right hepatic lobe consistent with large cavernous hemangiomas Will need follow-up of the hepatic lesion Continue monitor liver enzymes-has been improving Hypothyroidism TSH 7.6 Will increase Levothyroxine to 37.5 mg daily Check TSH in 4 to 6 weeks Anemia Hemoglobin 10.9 Denies any dark stool or bleeding Continue monitor CBC Chronic hypotension BP has been low (80's) in the last few encounters with PCP that is baseline Continue monitor DVT prophylaxis-subcu heparin Will be discharged home today Total Time Total Time Spent Total Time Spent (In Minutes): 35 minutes Discharge Plan Discharge Items Patient Disposition: Home - Self-Care Reason For Visit: B/L LE EDEMA Discharge Diagnosis: Edema of the lower extremities, acute hyponatremia, bilateral leg wounds Activity: Resume your previous activity Non-emergency contact: Primary Care Provider Call non-emergency contact if: you have any medication questions and your symptoms worsen Follow-up/Referrals: Michaela Lyons MD [Primary Care Provider] - (Your doctor's office will call you with an appointment within 7 days) Diet: Regular Fluids: 1500ml (6 cups) Addtl Attending Provider Instructions: Please take precautions to avoid falls. Try to keep your legs elevated while in bed Please finish the course of antibiotic Keep your wounds clean and dry and apply dressing as per instruction from the wound care You also can try [id number] probiotics as long as you are on antibiotic Recommendations from the business banker -Patient can be discharged today on salt tablets 1 g 3 times daily, Lasix 20 mg daily, potassium chloride 20 equivalents daily and fluid restriction of 1.5 L daily. -Patient needs high-protein diet. I have asked her to eat at least 3 eggs every day and include protein on each meal. Patient should have at least 3 meals daily. This will be challenging given her vegetarian lifestyle. Patient will need a repeat BMP mid next week and renal follow-up towards the end of the week. Pending Studies at Discharge: No Stand-Alone Forms: My [facility], Smoking Cessation Medications and DC Order Prescriptions: New doxycycline hyclate 100 mg Capsule 100 mg PO BID 7 Days Qty: 14 RF: 0 levothyroxine [Synthroid] 25 mcg Tablet 37.5 mcg PO DAILYBB 30 Days Qty: 45 RF: 0 sodium chloride 1 gram tablet 1,000 mg PO TID Qty: 90 RF: 0 furosemide [Lasix] 20 mg tablet 20 mg PO DAILY Qty: 30 RF: 0 potassium chloride 20 mEq tablet extended release 20 meq PO DAILY Qty: 30 RF: 0 Continued multivitamin Tablet 1 tab PO DAILY RF: 0 mupirocin 2 % ointment 1 applic TOPICAL TID PRN (Reason: flare up) RF: 0 Discontinued levothyroxine 25 mcg tablet 25 mcg PO DAILY RF: 0 Discharge Orders: Discharge Order (Routine); Ordered 12/04/21 Ordered By: Tyrone Suh Admission Data Admit Date/Time: 12/02/21 16:47 Attending Provider: Tyrone Suh Admit Provider: Terrance Quick Primary Care Provider: Michaela Lyons Other Providers: Terrance Quick ; Justine Kilgore ; Tyrone Suh Other Interventions: Discharge Summary Assessment (RN) Last Done: 12/04/21 14:25
== END 2021-12-04 14:47 | disposition home or self-care (01) | DRG 602 ==
LOC: ED 11:39 → 2N 16:47 → SUATTDRO 16:47 → 2N 21:35